=== PATIENT | male | born 1960 | race Caucasian/White ===

== ENCOUNTER 2021-03-21 15:38 | Inpatient (IN) | payer BC ==
[~2021-03-21] VITALS: Ht 175.3 cm; Wt 103.4 kg
[2021-03-21 19:40] VITALS: BP 143/96
[2021-03-21] MEDS ORDERED: OxyCODONE HCL 5 MG IR TABLET PO PRN (20:15)
[2021-03-21] MEDS ORDERED: SENNA 218 MG/5 ML LIQUID ORAL.SYG PO SCH (21:00)
[2021-03-21] MEDS: GABAPENTIN 100 MG CAPSULE PO SCH (21:22)
[2021-03-21] MEDS: ENOXAPARIN SODIUM 40 MG/0.4 ML PF SYRINGE SQ SCH (21:22)
[2021-03-21] MEDS: SENNA 187 MG TABLET PO SCH (21:22)
[2021-03-21] MEDS: MELATONIN 5 MG TABLET PO PRN (21:22)
[2021-03-21] MEDS: ETHYL ALCOHOL 62% ANTISEPTIC NASAL INHALANT 0.6 ML AMPUL NASAL SCH (21:23)
[2021-03-21] MEDS: TraMADol HCL 50 MG TABLET PO PRN (21:55)
[2021-03-22 00:32] VITALS: BP 134/84
[2021-03-22] MEDS: IBUPROFEN 800 MG TABLET PO PRN (02:03)
[2021-03-22 06:35] LABS: EOSINOPHILS % (AUTO) 4.4 % (1.0-6.0); HEMATOCRIT 39.6 % (41-53); LYMPHOCYTES # (AUTO) 1.5 K/uL (1.0-4.8); LYMPHOCYTES % (AUTO) 30.4 % (22.0-44.0); MEAN CORPUSCULAR HEMOGLOBIN 32.1 pg (26.0-34.0); MEAN CORPUSCULAR HGB CONC 35.4 G/dL (31.0-37.0); MEAN CORPUSCULAR VOLUME 91 fL (80-100); MONOCYTES # (AUTO) 0.6 K/uL (0.1-1.0); NEUTROPHILS # (AUTO) 2.5 K/uL (1.8-7.7); NEUTROPHILS % (AUTO) 51.2 % (40.0-70.0); PLATELET COUNT (AUTO) 163 K/uL (150-450); RED BLOOD CELL COUNT(AUTO) 4.36 MIL/uL (4.50-5.90); RED CELL DISTRIBUTION WIDTH 13.1 % (11.5-14.5)
[2021-03-22 06:59] LABS: ANION GAP 1 mmol/L (8-16); CARBON DIOXIDE 30 mmol/L (22-29); CHLORIDE 103 mmol/L (98-107); CREATININE 0.75 mg/dL (0.60-1.30); GLUCOSE,RANDOM 99 mg/dL (70-110); POTASSIUM 4.5 mmol/L (3.5-5.1); SODIUM SERUM 134 mmol/L (136-145); UREA NITROGEN, BLOOD 20 mg/dL (7-18)
[2021-03-22 07:00] LABS: ALANINE AMINOTRANSFERASE 104 U/L (12-78); ALBUMIN 2.8 g/dL (3.4-5.0); ALKALINE PHOSPHATASE 102 U/L (46-116); ASPARTATE AMINOTRANSFERASE 72 U/L (15-37); BILIRUBIN,TOTAL 0.8 mg/dL (0.1-1.0); GLOMERULAR FILTR. RATE CALC > 60 mL/min (>60); TOTAL PROTEIN, SERUM 8.2 g/dL (6.4-8.2)
[2021-03-22] MEDS: TraMADol HCL 50 MG TABLET PO PRN ×3 (08:21→22:25)
[2021-03-22] MEDS: ETHYL ALCOHOL 62% ANTISEPTIC NASAL INHALANT 0.6 ML AMPUL NASAL SCH ×2 (08:22→20:40)
[2021-03-22] MEDS: POLYETHYLENE GLYCOL 3350 17 GM PACKET PO SCH (08:22)
[2021-03-22] MEDS: ENOXAPARIN SODIUM 40 MG/0.4 ML PF SYRINGE SQ SCH (08:22)
[2021-03-22] MEDS: GABAPENTIN 100 MG CAPSULE PO SCH ×3 (08:22→20:40)
[2021-03-22] MEDS: DOCUSATE SODIUM 250 MG CAPSULE PO SCH (08:22)
[2021-03-22 09:01] VITALS: BP 127/84
[2021-03-22 15:45] VITALS: BP 124/71
[2021-03-22] MEDS: CYCLOBENZAPRINE HCL 10 MG TABLET PO PRN (17:45)
[2021-03-22] MEDS: SENNA 187 MG TABLET PO SCH (20:40)
[2021-03-22] MEDS: ENOXAPARIN SODIUM 30 MG/0.3 ML PF SYRINGE SQ SCH (22:24)
[2021-03-23 00:29] VITALS: BP 138/86
[2021-03-23] MEDS: CYCLOBENZAPRINE HCL 10 MG TABLET PO PRN ×3 (00:29→18:37)
[2021-03-23] MEDS: TraMADol HCL 50 MG TABLET PO PRN ×3 (05:00→18:37)
[2021-03-23] MEDS: DOCUSATE SODIUM 250 MG CAPSULE PO SCH (08:33)
[2021-03-23] MEDS: ENOXAPARIN SODIUM 30 MG/0.3 ML PF SYRINGE SQ SCH ×2 (08:33→21:05)
[2021-03-23] MEDS: GABAPENTIN 100 MG CAPSULE PO SCH ×3 (08:33→21:05)
[2021-03-23] MEDS: POLYETHYLENE GLYCOL 3350 17 GM PACKET PO SCH (08:33)
[2021-03-23] MEDS: ETHYL ALCOHOL 62% ANTISEPTIC NASAL INHALANT 0.6 ML AMPUL NASAL SCH ×2 (08:33→21:05)
[2021-03-23 09:00] VITALS: BP 127/85
[2021-03-23] MEDS ORDERED: ENOXAPARIN SODIUM 30 MG/0.3 ML PF SYRINGE SQ SCH (09:00)
[2021-03-23 16:41] VITALS: BP 114/74
[2021-03-23] MEDS: SENNA 187 MG TABLET PO SCH (21:05)
[2021-03-23] MEDS: IBUPROFEN 800 MG TABLET PO PRN (23:33)
[2021-03-24] VITALS: BP 128/79
[2021-03-24] MEDS: TraMADol HCL 50 MG TABLET PO PRN ×3 (06:26→23:49)
[2021-03-24 08:09] VITALS: BP 135/91
[2021-03-24] MEDS: CYCLOBENZAPRINE HCL 10 MG TABLET PO PRN (08:09)
[2021-03-24] MEDS: DOCUSATE SODIUM 250 MG CAPSULE PO SCH (08:09)
[2021-03-24] MEDS: IBUPROFEN 800 MG TABLET PO PRN (08:09)
[2021-03-24] MEDS: GABAPENTIN 100 MG CAPSULE PO SCH (08:10)
[2021-03-24] MEDS: ENOXAPARIN SODIUM 30 MG/0.3 ML PF SYRINGE SQ SCH ×2 (08:11→21:47)
[2021-03-24] MEDS: POLYETHYLENE GLYCOL 3350 17 GM PACKET PO SCH (08:11)
[2021-03-24] MEDS: ETHYL ALCOHOL 62% ANTISEPTIC NASAL INHALANT 0.6 ML AMPUL NASAL SCH ×2 (08:11→21:47)
[2021-03-24] MEDS: GABAPENTIN 300 MG CAPSULE PO SCH ×2 (15:44→21:47)
[2021-03-24 16:30] VITALS: BP 118/87
[2021-03-24] MEDS: SENNA 187 MG TABLET PO SCH (21:47)
[2021-03-24 22:49] VITALS: BP 119/77
[2021-03-24 23:49] VITALS: BP 119/77
[2021-03-25] MEDS: CYCLOBENZAPRINE HCL 10 MG TABLET PO PRN (04:31)
[2021-03-25] MEDS: ENOXAPARIN SODIUM 30 MG/0.3 ML PF SYRINGE SQ SCH ×2 (08:03→20:31)
[2021-03-25] MEDS: GABAPENTIN 300 MG CAPSULE PO SCH ×3 (08:03→20:31)
[2021-03-25] MEDS: ETHYL ALCOHOL 62% ANTISEPTIC NASAL INHALANT 0.6 ML AMPUL NASAL SCH ×2 (08:03→20:31)
[2021-03-25] MEDS: DOCUSATE SODIUM 250 MG CAPSULE PO SCH (08:03)
[2021-03-25] MEDS: POLYETHYLENE GLYCOL 3350 17 GM PACKET PO SCH (08:03)
[2021-03-25 08:45] VITALS: BP 128/91
[2021-03-25] MEDS: TraMADol HCL 50 MG TABLET PO PRN ×2 (08:47→23:05)
[2021-03-25] MEDS: IBUPROFEN 800 MG TABLET PO PRN (13:07)
[2021-03-25 16:00] VITALS: BP 124/81
[2021-03-25] MEDS: MELATONIN 5 MG TABLET PO PRN (20:31)
[2021-03-25] MEDS: SENNA 187 MG TABLET PO SCH (20:31)
[2021-03-25 23:04] VITALS: BP 117/75
[2021-03-26] MEDS: CYCLOBENZAPRINE HCL 10 MG TABLET PO PRN ×2 (01:20→09:40)
[2021-03-26 07:10] VITALS: BP 129/84
[2021-03-26 07:26] LABS: ALANINE AMINOTRANSFERASE 61 U/L (12-78); ALKALINE PHOSPHATASE 76 U/L (46-116); ANION GAP 5 mmol/L (8-16); ASPARTATE AMINOTRANSFERASE 27 U/L (15-37); BILIRUBIN,TOTAL 0.6 mg/dL (0.1-1.0); CALCIUM, TOTAL 9.1 mg/dL (8.8-10.5); CARBON DIOXIDE 31 mmol/L (22-29); CHLORIDE 104 mmol/L (98-107); CREATININE 0.82 mg/dL (0.60-1.30); GLOMERULAR FILTR. RATE CALC > 60 mL/min (>60); GLUCOSE,RANDOM 90 mg/dL (70-110); POTASSIUM 4.3 mmol/L (3.5-5.1); SODIUM SERUM 140 mmol/L (136-145); TOTAL PROTEIN, SERUM 8.1 g/dL (6.4-8.2); UREA NITROGEN, BLOOD 19 mg/dL (7-18)
[2021-03-26] MEDS: TraMADol HCL 50 MG TABLET PO PRN ×2 (08:36→18:14)
[2021-03-26] MEDS: GABAPENTIN 300 MG CAPSULE PO SCH ×3 (08:47→21:00)
[2021-03-26] MEDS: ENOXAPARIN SODIUM 30 MG/0.3 ML PF SYRINGE SQ SCH ×2 (08:47→21:00)
[2021-03-26] MEDS: POLYETHYLENE GLYCOL 3350 17 GM PACKET PO SCH (08:48)
[2021-03-26] MEDS: DOCUSATE SODIUM 250 MG CAPSULE PO SCH (08:48)
[2021-03-26] MEDS: ETHYL ALCOHOL 62% ANTISEPTIC NASAL INHALANT 0.6 ML AMPUL NASAL SCH ×2 (08:48→21:00)
[2021-03-26] MEDS ORDERED: GABAPENTIN 300 MG CAPSULE PO SCH (09:00)
[2021-03-26] MEDS: IBUPROFEN 800 MG TABLET PO PRN (13:15)
[2021-03-26 16:00] VITALS: BP 119/84
[2021-03-26] MEDS: SENNA 187 MG TABLET PO SCH (21:00)
[2021-03-26] MEDS: MELATONIN 5 MG TABLET PO PRN (21:00)
[2021-03-27 00:15] VITALS: BP 120/78
[2021-03-27] MEDS: CYCLOBENZAPRINE HCL 10 MG TABLET PO PRN (03:42)
[2021-03-27 07:50] VITALS: BP 134/88
[2021-03-27] MEDS: TraMADol HCL 50 MG TABLET PO PRN ×2 (07:50→23:16)
[2021-03-27] MEDS: ETHYL ALCOHOL 62% ANTISEPTIC NASAL INHALANT 0.6 ML AMPUL NASAL SCH ×2 (08:07→21:06)
[2021-03-27] MEDS: GABAPENTIN 300 MG CAPSULE PO SCH ×3 (08:07→21:06)
[2021-03-27] MEDS: ENOXAPARIN SODIUM 30 MG/0.3 ML PF SYRINGE SQ SCH ×2 (08:07→21:06)
[2021-03-27] MEDS: DOCUSATE SODIUM 250 MG CAPSULE PO SCH (08:07)
[2021-03-27] MEDS: POLYETHYLENE GLYCOL 3350 17 GM PACKET PO SCH (08:07)
[2021-03-27] MEDS: IBUPROFEN 800 MG TABLET PO PRN (13:05)
[2021-03-27 16:00] VITALS: BP 131/74
[2021-03-27] MEDS: SENNA 187 MG TABLET PO SCH (21:06)
[2021-03-27] MEDS: MELATONIN 5 MG TABLET PO PRN (21:07)
[2021-03-28 00:16] VITALS: BP 123/77
[2021-03-28] MEDS: CYCLOBENZAPRINE HCL 10 MG TABLET PO PRN (04:57)
[2021-03-28] MEDS: ETHYL ALCOHOL 62% ANTISEPTIC NASAL INHALANT 0.6 ML AMPUL NASAL SCH ×2 (07:40→20:48)
[2021-03-28] MEDS: DOCUSATE SODIUM 250 MG CAPSULE PO SCH (07:40)
[2021-03-28] MEDS: POLYETHYLENE GLYCOL 3350 17 GM PACKET PO SCH (07:40)
[2021-03-28] MEDS: ENOXAPARIN SODIUM 30 MG/0.3 ML PF SYRINGE SQ SCH ×2 (07:41→20:48)
[2021-03-28] MEDS: GABAPENTIN 300 MG CAPSULE PO SCH ×3 (07:41→20:49)
[2021-03-28 08:00] VITALS: BP 126/90
[2021-03-28] MEDS: TraMADol HCL 50 MG TABLET PO PRN (08:26)
[2021-03-28] MEDS: IBUPROFEN 800 MG TABLET PO PRN (11:24)
[2021-03-28 16:00] VITALS: BP 131/79
[2021-03-28] MEDS: MELATONIN 5 MG TABLET PO PRN (20:48)
[2021-03-28] MEDS: SENNA 187 MG TABLET PO SCH (20:49)
[2021-03-29 02:05] VITALS: BP 120/90
[2021-03-29] MEDS: TraMADol HCL 50 MG TABLET PO PRN ×2 (02:05→08:47)
[2021-03-29 08:47] VITALS: BP 133/98
[2021-03-29] MEDS: ENOXAPARIN SODIUM 30 MG/0.3 ML PF SYRINGE SQ SCH (08:48)
[2021-03-29] MEDS: DOCUSATE SODIUM 250 MG CAPSULE PO SCH (08:48)
[2021-03-29] MEDS: GABAPENTIN 300 MG CAPSULE PO SCH ×3 (08:48→20:49)
[2021-03-29] MEDS: ETHYL ALCOHOL 62% ANTISEPTIC NASAL INHALANT 0.6 ML AMPUL NASAL SCH ×2 (08:48→20:49)
[2021-03-29] MEDS: POLYETHYLENE GLYCOL 3350 17 GM PACKET PO SCH (08:48)
[2021-03-29] MEDS: APIXABAN 5 MG TABLET PO SCH ×2 (10:15→20:49)
[2021-03-29] MEDS: CYCLOBENZAPRINE HCL 10 MG TABLET PO PRN (13:05)
[2021-03-29 15:00] VITALS: BP 138/78
[2021-03-29] MEDS: SENNA 187 MG TABLET PO SCH (20:49)
[2021-03-30 03:18] VITALS: BP 113/76
[2021-03-30] MEDS: TraMADol HCL 50 MG TABLET PO PRN ×2 (03:18→13:29)
[2021-03-30] MEDS ORDERED: DOCU-350 PO (04:04)
[2021-03-30] MEDS ORDERED: GABA-1181 PO ×2 (04:04)
[2021-03-30] MEDS ORDERED: POLY17PO47 PO (04:04)
[2021-03-30] MEDS ORDERED: APIX5TAB PO (04:04)
[2021-03-30] MEDS ORDERED: TRAM50TA4 PO (04:10)
[2021-03-30] MEDS ORDERED: SENN8.6T90 PO (04:10)
[2021-03-30] MEDS ORDERED: CYCL10TA17 PO (04:21)
[2021-03-30] MEDS: GABAPENTIN 300 MG CAPSULE PO SCH ×3 (07:52→20:13)
[2021-03-30] MEDS: APIXABAN 5 MG TABLET PO SCH ×2 (07:52→20:13)
[2021-03-30] MEDS: POLYETHYLENE GLYCOL 3350 17 GM PACKET PO SCH (07:52)
[2021-03-30] MEDS: DOCUSATE SODIUM 250 MG CAPSULE PO SCH (07:52)
[2021-03-30] MEDS: ETHYL ALCOHOL 62% ANTISEPTIC NASAL INHALANT 0.6 ML AMPUL NASAL SCH ×2 (07:52→20:13)
[2021-03-30 08:01] VITALS: BP 127/76
[2021-03-30] MEDS: CYCLOBENZAPRINE HCL 10 MG TABLET PO PRN (08:19)
[2021-03-30 16:51] VITALS: BP 132/75
[2021-03-30] MEDS: MELATONIN 5 MG TABLET PO PRN (20:13)
[2021-03-30] MEDS: SENNA 187 MG TABLET PO SCH (20:13)
[2021-03-31 00:02] VITALS: BP 137/87
[2021-03-31] MEDS: CYCLOBENZAPRINE HCL 10 MG TABLET PO PRN (04:50)
[2021-03-31] MEDS: DOCUSATE SODIUM 250 MG CAPSULE PO SCH (08:27)
[2021-03-31] MEDS: ETHYL ALCOHOL 62% ANTISEPTIC NASAL INHALANT 0.6 ML AMPUL NASAL SCH ×2 (08:27→20:03)
[2021-03-31] MEDS: APIXABAN 5 MG TABLET PO SCH ×2 (08:27→20:03)
[2021-03-31] MEDS: GABAPENTIN 300 MG CAPSULE PO SCH ×3 (08:28→20:03)
[2021-03-31 08:30] VITALS: BP 130/93
[2021-03-31] MEDS: POLYETHYLENE GLYCOL 3350 17 GM PACKET PO SCH (08:30)
[2021-03-31] MEDS: TraMADol HCL 50 MG TABLET PO PRN (08:34)
[2021-03-31 16:00] VITALS: BP 120/72
[2021-03-31] MEDS: SENNA 187 MG TABLET PO SCH (20:03)
[2021-03-31] MEDS: MELATONIN 5 MG TABLET PO PRN (20:03)
[2021-04-01 01:00] VITALS: BP 122/84
[2021-04-01] MEDS: CYCLOBENZAPRINE HCL 10 MG TABLET PO PRN (05:13)
[2021-04-01] MEDS: DOCUSATE SODIUM 250 MG CAPSULE PO SCH (08:19)
[2021-04-01] MEDS: APIXABAN 5 MG TABLET PO SCH ×2 (08:19→20:10)
[2021-04-01] MEDS: ETHYL ALCOHOL 62% ANTISEPTIC NASAL INHALANT 0.6 ML AMPUL NASAL SCH ×2 (08:19→20:10)
[2021-04-01 08:20] VITALS: BP 120/85
[2021-04-01] MEDS: TraMADol HCL 50 MG TABLET PO PRN ×2 (08:20→14:33)
[2021-04-01] MEDS: GABAPENTIN 300 MG CAPSULE PO SCH ×3 (08:20→20:10)
[2021-04-01] MEDS: POLYETHYLENE GLYCOL 3350 17 GM PACKET PO SCH (08:20)
[2021-04-01 16:54] VITALS: BP 133/88
[2021-04-01] MEDS: MELATONIN 5 MG TABLET PO PRN (20:10)
[2021-04-01] MEDS: SENNA 187 MG TABLET PO SCH (20:10)
[2021-04-02 05:53] VITALS: BP 112/86
[2021-04-02] MEDS: CYCLOBENZAPRINE HCL 10 MG TABLET PO PRN (05:53)
[2021-04-02 08:15] VITALS: BP 116/82
[2021-04-02] MEDS: TraMADol HCL 50 MG TABLET PO PRN ×2 (08:15→15:28)
[2021-04-02] MEDS: ETHYL ALCOHOL 62% ANTISEPTIC NASAL INHALANT 0.6 ML AMPUL NASAL SCH ×2 (08:15→20:29)
[2021-04-02] MEDS: GABAPENTIN 300 MG CAPSULE PO SCH ×3 (08:15→20:29)
[2021-04-02] MEDS: DOCUSATE SODIUM 250 MG CAPSULE PO SCH (08:15)
[2021-04-02] MEDS: APIXABAN 5 MG TABLET PO SCH ×2 (08:15→20:29)
[2021-04-02] MEDS: POLYETHYLENE GLYCOL 3350 17 GM PACKET PO SCH (08:16)
[2021-04-02 15:28] VITALS: BP 122/70
[2021-04-02] MEDS: MELATONIN 5 MG TABLET PO PRN (20:29)
[2021-04-02] MEDS: SENNA 187 MG TABLET PO SCH (20:29)
[2021-04-03 02:00] VITALS: BP 132/79
[2021-04-03] MEDS: CYCLOBENZAPRINE HCL 10 MG TABLET PO PRN (06:30)
[2021-04-03] MEDS: DOCUSATE SODIUM 250 MG CAPSULE PO SCH (08:36)
[2021-04-03] MEDS: ETHYL ALCOHOL 62% ANTISEPTIC NASAL INHALANT 0.6 ML AMPUL NASAL SCH (08:36)
[2021-04-03] MEDS: POLYETHYLENE GLYCOL 3350 17 GM PACKET PO SCH (08:37)
[2021-04-03] MEDS: GABAPENTIN 300 MG CAPSULE PO SCH (08:37)
[2021-04-03] MEDS: APIXABAN 5 MG TABLET PO SCH (08:37)
[2021-04-03 08:45] VITALS: BP 126/83
[2021-04-03] MEDS: TraMADol HCL 50 MG TABLET PO PRN (12:13)
== END 2021-04-03 13:15 | disposition home or self-care (01) | DRG 95 ==
LOC: 2WR 19:20
PROVIDERS: ADMIT Physical Medicine & Rehabilitation; ATTEND Physical Medicine & Rehabilitation
DX: G61.0 Guillain-Barre syndrome (principal); I82.442 Acute embolism and thrombosis of left tibial vein; E46 Unspecified protein-calorie malnutrition; R53.81 Other malaise; I82.462 Acute embolism and thrombosis of left calf muscular vein; G89.29 Other chronic pain; E66.9 Obesity, unspecified; R74.01 Elevation of levels of liver transaminase levels; I10 Essential (primary) hypertension; M48.061 Spinal stenosis, lumbar region without neurogenic claudication; M48.02 Spinal stenosis, cervical region; K59.00 Constipation, unspecified; G47.00 Insomnia, unspecified; G62.9 Polyneuropathy, unspecified; Z90.49 Acquired absence of other specified parts of digestive tract; Z68.33 Body mass index [BMI] 33.0-33.9, adult
CPT/HCPCS: 80053; 85025; 87081; 93970; 97110; 97112; 97116; 97150; 97162; 97166; 97530; 97535; 99366; J1650; Q9967